=== PATIENT | male | born 1945 | race Caucasian/White ===

== ENCOUNTER 2017-02-28 22:59 | Emergency (ER) | payer MEDICARE, BC ==
[2017-02-28 23:12] VITALS: BP 159/100
--- NOTE | 2017-02-28 23:32 | EDM.PDOC ---
ED HPI GENERAL MEDICAL PROBLEM - General Chief Complaint: Neuro Symptoms/Deficits Stated Complaint: IN BY AMBULANCE Time Seen by Provider: 02/28/17 23:15 Source of Information: Reports: Patient, Family History Limitations: Reports: No Limitations - History of Present Illness INITIAL COMMENTS - FREE TEXT/NARRATIVE: This 72 yo male patient was brought to the ED by [facility] due to altered mentation. The patient's family report that the patient was laying down on the cough when he started shaking and became unresponsive. By the time EMS arrived on scene, the patient was answering questions, but still a little confused as to the events of the day. The patient has been worked up for similar symptoms in the past and been advised that is was a nerve problem. The patient reports that he does not recall anything since this morning. Onset: Today Duration: Improving Location: Reports: Generalized Quality: Reports: Other Severity: Moderate Improves with: Reports: None Worsens with: Reports: None - Related Data Allergies Allergy/AdvReac Type Severity Reaction Status Date / Time No Known Allergies Allergy Verified 02/28/17 23:12 Home Meds: Home Meds Levothyroxine 25 mcg PO ACBREAKFAST 05/11/15 [History] Levothyroxine 150 mcg PO ACBREAKFAST 05/11/15 [History] Simvastatin [Simvastatin] 05/11/15 [History] Tamsulosin [Flomax] 05/11/15 [History] Past Medical History Cardiovascular History: Reports: High Cholesterol, Syncope Genitourinary History: Reports: Prostate Disorder Endocrine/Metabolic History: Reports: Hypothyroidism - Past Surgical History GI Surgical History: Reports: Colonoscopy, EGD Social & Family History - Family History Family Medical History: Noncontributory - Tobacco Use Smoking Status *Q: Never Smoker - Recreational Drug Use Recreational Drug Use: No ED ROS GENERAL - Review of Systems Review Of Systems: ROS reveals no pertinent complaints other than HPI. ED EXAM, GENERAL - Physical Exam Exam: See Below Exam Limited By: No Limitations General Appearance: Alert, WD/WN, No Apparent Distress Eye Exam: Bilateral Eye: EOMI, Normal Inspection, PERRL Ears: Normal External Exam, Normal Canal, Hearing Grossly Normal, Normal TMs Nose: Normal Inspection, Normal Mucosa, No Blood Throat/Mouth: Normal Inspection, Normal Lips, Normal Teeth, Normal Gums, Normal Oropharynx, Normal Voice, No Airway Compromise Head: Atraumatic, Normocephalic Neck: Normal Inspection, Supple, Non-Tender, Full Range of Motion Respiratory/Chest: No Respiratory Distress, Lungs Clear, Normal Breath Sounds, No Accessory Muscle Use, Chest Non-Tender Cardiovascular: No Edema, No Gallop, No JVD, No Murmur, No Rub, Tachycardia GI/Abdominal: Normal Bowel Sounds, Soft, Non-Tender, No Organomegaly, No Distention, No Abnormal Bruit, No Mass (Male) Exam: Deferred Rectal (Males) Exam: Deferred Back Exam: Normal Inspection, Full Range of Motion, Paraspinal Tenderness ( between shoulder blades (superficial) no evidence of trauma or bruising) Extremities: Normal Inspection, Normal Range of Motion, Non-Tender, Normal Capillary Refill, No Pedal Edema Neurological: Alert, Oriented, CN II-XII Intact, Normal Cognition, Normal Gait, Normal Reflexes, No Motor/Sensory Deficits Psychiatric: Normal Affect, Normal Mood Skin Exam: Warm, Dry, Intact, Normal Color, No Rash Lymphatic: No Adenopathy Course - Vital Signs Last Recorded V/S: Last Vital Signs Temp 36.4 C 02/28/17 23:03 Pulse 108 H 02/28/17 23:03 Resp 16 02/28/17 23:03 BP 159/100 H 02/28/17 23:03 Pulse Ox 95 02/28/17 23:03 - Orders/Labs/Meds Orders: Active Orders 24 hr Category Date Time Status EKG Documentation Completion [RC] URGENT Care 02/28/17 22:59 Ordered DRUG SCREEN URINE BIORAD [URCHEM] Stat Lab 02/28/17 22:59 Uncollected UA W/MICROSCOPIC [URIN] Stat Lab 02/28/17 22:59 Uncollected Labs: Laboratory Tests 02/28/17 02/28/17 02/28/17 Range/Units 23:10 23:10 23:10 WBC 6.9 (5.0-10.0) 10^3/uL RBC 5.36 (4.6-6.2) 10^6/uL Hgb 16.0 (14.0-18.0) g/dL Hct 48.7 (40.0-54.0) % MCV 90.9 (80-100) fL MCH 29.9 (27.0-34.0) pg MCHC 32.9 L (33.0-35.0) g/dL Plt Count 160 (150-450) 10^3/uL Neut % (Auto) 56.0 (42.2-75.2) % Lymph % (Auto) 30.1 (20.5-50.1) % Banks % (Auto) 9.0 H (2-8) % Eos % (Auto) 4.2 H (1.0-3.0) % Baso % (Auto) 0.7 (0.0-1.0) % Add Manual Diff Yes Neutrophils % (Manual) 65 (42-75) % Lymphocytes % (Manual) 25 (20-50) % Monocytes % (Manual) 9 H (2-8) % Eosinophils % (Manual) 1 (1-3) % Sodium (135-145) mmol/L Potassium (3.6-5.0) mmol/L Chloride (101-111) mmol/L Carbon Dioxide (21.0-31.0) mmol/L Anion Gap BUN (7-18) mg/dL Creatinine (0.6-1.3) mg/dL Est Cr Clr Drug Dosing mL/min Estimated GFR (MDRD) BUN/Creatinine Ratio Glucose (74-105) mg/dL Calcium (8.4-10.2) mg/dl Magnesium 2.1 (1.8-2.5) mg/dL Total Bilirubin (0.2-1.0) mg/dL AST (10-42) IU/L ALT (10-60) IU/L Alkaline Phosphatase (42-121) IU/L Ammonia 26 (11-35) umol/L Troponin I (0.00-0.02) ng/ml Total Protein (6.7-8.2) g/dl Albumin (3.2-5.5) g/dl Globulin Albumin/Globulin Ratio Amylase 60 (28-100) U/L Lipase 26 (22-51) U/L Ethyl Alcohol < 5 mg/dL 02/28/17 Range/Units 23:10 WBC (5.0-10.0) 10^3/uL RBC (4.6-6.2) 10^6/uL Hgb (14.0-18.0) g/dL Hct (40.0-54.0) % MCV (80-100) fL MCH (27.0-34.0) pg MCHC (33.0-35.0) g/dL Plt Count (150-450) 10^3/uL Neut % (Auto) (42.2-75.2) % Lymph % (Auto) (20.5-50.1) % Banks % (Auto) (2-8) % Eos % (Auto) (1.0-3.0) % Baso % (Auto) (0.0-1.0) % Add Manual Diff Neutrophils % (Manual) (42-75) % Lymphocytes % (Manual) (20-50) % Monocytes % (Manual) (2-8) % Eosinophils % (Manual) (1-3) % Sodium 139 (135-145) mmol/L Potassium 3.7 (3.6-5.0) mmol/L Chloride 99 L (101-111) mmol/L Carbon Dioxide 29.0 (21.0-31.0) mmol/L Anion Gap 14.7 BUN 17 (7-18) mg/dL Creatinine 1.3 (0.6-1.3) mg/dL Est Cr Clr Drug Dosing 52.87 mL/min Estimated GFR (MDRD) 55 BUN/Creatinine Ratio 13.07 Glucose 132 H (74-105) mg/dL Calcium 9.4 (8.4-10.2) mg/dl Magnesium (1.8-2.5) mg/dL Total Bilirubin 0.6 (0.2-1.0) mg/dL AST 35 (10-42) IU/L ALT 29 (10-60) IU/L Alkaline Phosphatase 65 (42-121) IU/L Ammonia (11-35) umol/L Troponin I < 0.02 (0.00-0.02) ng/ml Total Protein 7.3 (6.7-8.2) g/dl Albumin 4.3 (3.2-5.5) g/dl Globulin 3.0 Albumin/Globulin Ratio 1.43 Amylase (28-100) U/L Lipase (22-51) U/L Ethyl Alcohol mg/dL Departure - Departure Time of Disposition: 00:15 Disposition: Home, Self-Care 01 Condition: Fair Clinical Impression: Seizure - Discharge Information Instructions: Seizure, Adult, [id number] Forms: ED Department Discharge Care Plan Goals: The patient and family were advised of the examination, lab, EKG, x-ray and CT results during the visit. The patient was encouraged to rest and relax over the next 48 hours. The patient should call Neurology (Dr. Sandoval) for a follow-up appointment in the morning. If the patient has any additional symptoms or concerns, the patient should follow-up with his primary care facility or return to the emergency department. - My Orders Last 24 Hours: My Active Orders 02/28/17 22:59 EKG Documentation Completion [RC] URGENT DRUG SCREEN URINE BIORAD [URCHEM] Stat UA W/MICROSCOPIC [URIN] Stat - Assessment/Plan Last 24 Hours: My Active Orders 02/28/17 22:59 EKG Documentation Completion [RC] URGENT DRUG SCREEN URINE BIORAD [URCHEM] Stat UA W/MICROSCOPIC [URIN] Stat
[2017-02-28 23:41] LABS: CHLORIDE,CL 99 mmol/L (101-111); SODIUM,NA 139 mmol/L (135-145)
[2017-03-01] MEDS ORDERED: Ibuprofen 400 MG Tab PO ONE (00:27)
--- NOTE | 2017-03-01 21:14 | EKG ---
02/28/2017 - KIARRA FLORES - This 12-lead EKG shows a sinus tachycardia with a ventricular rate of 106. Normal axis and intervals. Occasional PVC. No acute ST-T wave changes. [facility] /[id number]
== END 2017-03-01 01:00 | disposition home or self-care (01) ==
LOC: DL.ED 22:59
DX: R56.9 Unspecified convulsions (principal); E78.00 Pure hypercholesterolemia, unspecified; Z79.899 Other long term (current) drug therapy
CPT/HCPCS: 36415; 70450; 71045; 80053; 82140; 82150; 83690; 83735; 84484; 85025; 93005; 93010; 99284; A9270; G0480

== ENCOUNTER 2024-07-20 17:37 | Emergency (ER) | payer MEDICARE, BC ==
[2024-07-20 17:53] VITALS: BP 125/66; PULSE 73
[2024-07-20] MEDS: Proparacaine 0.5% Ophth Soln 15 ML Bottle EYERT STA (18:37)
[2024-07-20] MEDS: Fluorescein 1 MG Ophth Strip EYERT ONE ×2 (18:38)
[2024-07-20] MEDS: Erythromycin Base 0.5% Ophth Oint 3.5 GM Tube EYERT ONE (18:45)
== END 2024-07-20 18:54 | disposition home or self-care (01) ==
LOC: DL.ED 17:37
DX: S05.01XA Injury of conjunctiva and corneal abrasion without foreign body, right eye, initial encounter (principal); E03.9 Hypothyroidism, unspecified; E78.00 Pure hypercholesterolemia, unspecified; Z79.899 Other long term (current) drug therapy; Z79.890 Hormone replacement therapy; X58.XXXA Exposure to other specified factors, initial encounter
CPT/HCPCS: 99283; A9270; J3490